=== PATIENT | male | born 1980 | race Caucasian/White ===

== ENCOUNTER 2017-10-11 16:23 | Emergency (ER) | payer OTHER ==
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
[2017-10-11] MEDS ORDERED: IBUPROFEN 600 MG TABLET PO STA (17:12)
--- NOTE | 2017-10-11 17:49 | XRAY Preliminary Report ---
Exam: XR CERVICAL SPINE 2 VIEW IMPRESSION: 1. Normal prevertebral soft tissues. 2. No fracture or malalignment. Comment: Given the mechanism, recommend CT of the cervical spine. [facility] SITE ID: [id number]
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
[2017-10-11 18:16] VITALS: BP 128/72
== END 2017-10-11 18:13 | disposition home or self-care (01) ==
LOC: ED 16:23
DX: S16.1XXA Strain of muscle, fascia and tendon at neck level, initial encounter (principal); V49.9XXA Car occupant (driver) (passenger) injured in unspecified traffic accident, initial encounter
CPT/HCPCS: 72040; 99283; A9270